=== PATIENT | male | born 1960 | race Two or more races ===

== ENCOUNTER 2017-04-29 05:02 | Emergency (ER) | payer OTHER ==
[~2017-04-29] VITALS: Ht 172.7 cm; Wt 88.5 kg
== END 2017-04-29 14:35 | disposition home or self-care (01) ==
LOC: ER 05:02 → CPU-OBS 05:04 → ER 14:35
DX: R07.89 Other chest pain (principal); M94.0 Chondrocostal junction syndrome [Tietze]
CPT/HCPCS: G0378; G0379; 93005